=== PATIENT | female | born 1980 ===

== ENCOUNTER 2023-11-04 05:30 | Day surgery (SDC) | payer OTHER ==
[2023-11-04] MEDS ORDERED: CEFOXITIN SODIUM 2,000 MG VIAL IV ONE (08:30)
[2023-11-04] MEDS ORDERED: POVIDONE-IODINE 118 ML BOTT TOP ONE (08:30)
[2023-11-04] MEDS ORDERED: MORGIDOX100 MG PO (09:58)
[2023-11-04] MEDS ORDERED: MAXFE CAPLET1 EAC1 PO (09:59)
[2023-11-04] MEDS ORDERED: NAPROXEN500 MG PO (09:59)
[2023-11-04] MEDS ORDERED: MORPHINE SULFATE 4 MG/ML VIAL IV ONE ×2 (10:20→10:50)
[2023-11-04] MEDS ORDERED: MEPERIDINE HCL 25 MG/ML AMPUL IV ONE (11:50)
== END 2023-11-04 14:25 | disposition home or self-care (01) ==
LOC: CIR.AMB 05:30
PROVIDERS: ATTEND Obstetrics & Gynecology
DX: D25.0 Submucous leiomyoma of uterus (principal); N84.0 Polyp of corpus uteri; N92.1 Excessive and frequent menstruation with irregular cycle; N87.1 Moderate cervical dysplasia

== ENCOUNTER 2024-01-24 08:30 | Inpatient (IN) | payer OTHER ==
[~2024-01-24] VITALS: Ht 149.9 cm; Wt 54.4 kg
[~2024-01-24 08:30] MED LIST: MAXFE CAPLET1 EAC1 PO; MORGIDOX100 MG PO; NAPROXEN500 MG PO
[2024-01-24 09:48] VITALS: BP 116/74; BP 96/65
[2024-01-27] MEDS ORDERED: METRONIDAZOLE/SODIUM CHLORIDE 500 MG/100 ML PIGGYBACK IV ONE (13:15)
[2024-01-27] MEDS ORDERED: CEFOXITIN SODIUM 2,000 MG VIAL IV ONE (13:15)
[2024-01-27] MEDS ORDERED: MEPERIDINE HCL/PF 50 MG/ML VIAL IM PRN (14:00)
[2024-01-27] MEDS ORDERED: PROMETHAZINE HCL 50 MG/ML AMPUL IM PRN (14:00)
[2024-01-27] MEDS ORDERED: KETOROLAC TROMETHAMINE 30 MG VIAL IV PRN (14:00)
[2024-01-27] MEDS ORDERED: RINGERS SOLUTION,LACTATED 1,000 ML IV SCH (14:00)
[2024-01-27] MEDS ORDERED: MORPHINE SULFATE 4 MG/ML VIAL IV ONE ×2 (14:35→16:25)
[2024-01-27 17:31] VITALS: BP 96/65
[2024-01-27] MEDS ORDERED: SIMETHICONE 125 MG CAPSULE PO SCH (18:00)
[2024-01-27 19:36] LABS: HEMATOCRIT 30.2 % (36.0-45.00); HEMOGLOBIN 9.6 g/dL (12.0-15.00); MEAN CELL VOLUME 74.8 fL (80.00-100.00); MEAN CORPUSCULAR HEMOGLOBIN 23.9 pg (27.00-32.0); MEAN CORPUSCULAR HGB CONC 31.9 g/dl (32.0-36.0); PLATELET COUNT 392 K/uL (150-450); RED BLOOD COUNT 4.04 M/uL (4.00-6.00); RED CELL DISTRIBUTION WIDTH 17.8 % (11.5-14.5)
[2024-01-27 20:51] VITALS: BP 104/70
[2024-01-27] MEDS ORDERED: FAMOTIDINE/PF 20 MG/2 ML VIAL IV SCH (21:00)
[2024-01-28 01:07] VITALS: BP 106/72
[2024-01-28 08:00] VITALS: BP 103/69
[2024-01-28] MEDS ORDERED: NAPROXEN 500 MG TABLET PO PRN (08:45)
[2024-01-28] MEDS ORDERED: ACETAMINOPHEN WITH CODEINE 1 UDTAB TABLET PO PRN (08:45)
[2024-01-28] MEDS ORDERED: FAMOtidine 20 MG TABLET PO SCH (09:00)
[2024-01-28 16:00] VITALS: BP 112/66
[2024-01-29 00:58] VITALS: BP 118/75
[2024-01-29 08:41] VITALS: BP 105/70
[2024-01-29 15:35] VITALS: BP 102/71
[2024-01-30 00:24] VITALS: BP 104/68
[2024-01-30 08:03] VITALS: BP 93/61
[2024-01-30] MEDS ORDERED: NAPR500T14 PO (11:49)
[2024-01-30] MEDS ORDERED: Tylenol #3 PO (11:49)
== END 2024-01-30 13:01 | disposition home or self-care (01) | DRG 743 ==
LOC: O/R 01-27 05:45 → OB/GYN 01-27 05:45 → SURG 01-27 08:30 → OB/GYN 01-27 16:05
PROVIDERS: ADMIT Obstetrics & Gynecology; ATTEND Obstetrics & Gynecology
PROC: 0UT14ZZ Resection of Left Ovary, Percutaneous Endoscopic Approach (ICD-10-PCS; 2024-01-27)
PROC: 0UT74ZZ Resection of Bilateral Fallopian Tubes, Percutaneous Endoscopic Approach (ICD-10-PCS; 2024-01-27)
PROC: 0TJB8ZZ Inspection of Bladder, Via Natural or Artificial Opening Endoscopic (ICD-10-PCS; 2024-01-27)
PROC: 0UT94ZZ Resection of Uterus, Percutaneous Endoscopic Approach (ICD-10-PCS; principal; 2024-01-27 16:00)
DX: D25.1 Intramural leiomyoma of uterus (principal); Z20.822 Contact with and (suspected) exposure to COVID-19; N87.1 Moderate cervical dysplasia; R10.2 Pelvic and perineal pain; N81.11 Cystocele, midline; N92.0 Excessive and frequent menstruation with regular cycle; N83.12 Corpus luteum cyst of left ovary